=== PATIENT | male | born 1990 | race American Indian/Alaskan Native ===

== ENCOUNTER 2021-05-25 03:32 | Emergency (ER) | payer SELFPAY ==
[2021-05-25 03:36] VITALS: BP 125/78
== END 2021-05-25 03:40 | disposition left against medical advice (07) ==
LOC: ED 03:32
DX: K08.89 Other specified disorders of teeth and supporting structures (principal); Z53.21 Procedure and treatment not carried out due to patient leaving prior to being seen by health care provider